=== PATIENT | male | born 1955 | race Caucasian/White ===

== ENCOUNTER 2017-04-17 06:57 | Day surgery (SDC) | payer BC ==
[~2017-04-17 06:57] MED LIST: RINGER'S SOLUTION,LACTATED 1,000 ML IV PRN
[2017-04-17] MEDS ORDERED: RINGER'S SOLUTION,LACTATED 1,000 ML IV ONE (07:25)
[2017-04-17] MEDS ORDERED: RINGER'S SOLUTION,LACTATED 1,000 ML IV PRN (08:44)
[2017-04-17 09:31] VITALS: BP 156/96
--- NOTE | 2017-04-17 14:04 | OR ---
Operative Report - Dictated Report Narrative: OPERATIVE REPORT DATE OF OPERATION: 04/17/2017 PREOPERATIVE DIAGNOSIS: History of colon polyp. Family history of colon cancer POSTOPERATIVE DIAGNOSIS: 3 mm polyp at the hepatic flexure (pathology pending) OPERATION: Colonoscopy with hot biopsy forceps polypectomy at the hepatic flexure SURGEON: Stacie Toussaint MD ANESTHESIA: SABAS Perales CRNA INDICATIONS FOR PROCEDURE: The patient is a 61-year-old male who presents for colon surveillance. He had a small tubular adenoma at 25 cm removed in 2010. His mother had colon cancer at age 89. The patient is currently asymptomatic FINDINGS: A 3 mm polyp at the hepatic flexure otherwise normal colonoscopy to the cecum NARRATIVE OF PROCEDURE: The patient was identified in the holding area, and prior to the administration of anesthetic, a multidisciplinary timeout was observed. With the patient in the left lateral position and after the administration of intravenous sedation, the perineum was inspected. There was no evidence of pilonidal disease or skin breakdown. The external appearance of the anus was normal. Sphincter tone was good. The flexible fiberoptic colonoscope was inserted into the rectum which was insufflated with air. The rectal mucosa and submucosal vascular pattern appeared normal, the prep was seen to be complete. The scope was advanced through the sigmoid colon, up the descending colon, and around the splenic flexure where the triangular haustral architecture of the transverse colon was seen. The scope was advanced across the transverse colon, around the hepatic flexure to the cecum, where the confluence of tenia and the ileocecal valve were identified. The mucosa at this level appeared normal. The scope was then slowly withdrawn in a circular fashion so that all aspects of colonic mucosa were inspected. The colon was relatively normal in course and caliber. The haustral architecture appeared well preserved throughout with no evidence of external compression. The mucosa and submucosal vascular pattern appeared normal, specifically there was no gross evidence to suggest colitis or inflammatory bowel disease and no AV malformations were seen. There was a 3 mm area of possible polypoid change near the hepatic flexure. This was biopsied and then thoroughly destroyed with electrocautery. The site was seen to be complete and hemostatic. No diverticulosis was demonstrated. The scope was gradually withdrawn to the level of the rectum. As much insufflated air as possible was removed. The scope was withdrawn from the patient and the procedure terminated. The patient tolerated the anesthetic and procedure well without complication and was transferred back to the ambulatory surgery area awake and in stable condition. The patient remained stable throughout a period of postoperative observation. He denied abdominal discomfort, was able to tolerate by mouth intake, and was up without assistance. I shared the operative findings with the patient and he was given copies of the photographs which appear in the medical record. He was discharged home with instructions not to engage in hazardous activity today, but may resume normal activity tomorrow, and advance diet as tolerated. He is to continue those medications as listed in the history and physical exam. I made arrangements to contact him with the biopsy reports and will make additional recommendations for treatment and follow-up based upon those results. Reviewed and electronically signed
== END 2017-04-17 06:58 | disposition home or self-care (01) ==
LOC: AMB 06:57
PROVIDERS: ATTEND Surgery
PROC: 0DBE8ZX Excision of Large Intestine, Via Natural or Artificial Opening Endoscopic, Diagnostic (ICD-10-PCS; principal; 2017-04-17 08:00)
DX: Z12.11 Encounter for screening for malignant neoplasm of colon (principal); K63.5 Polyp of colon; I10 Essential (primary) hypertension; E78.5 Hyperlipidemia, unspecified; K21.9 Gastro-esophageal reflux disease without esophagitis; F41.1 Generalized anxiety disorder; Z87.891 Personal history of nicotine dependence; Z80.0 Family history of malignant neoplasm of digestive organs; Z68.30 Body mass index [BMI] 30.0-30.9, adult